=== PATIENT | male | born 1990 | race Caucasian/White ===

== ENCOUNTER 2024-11-18 03:05 | Emergency (ER) | payer SELFPAY ==
[2024-11-18] VITALS (7 sets, daily range): BP systolic 96–112; BP diastolic 57–67; PULSE 57–105; BMI 23.2
[2024-11-18 03:35] LABS: % Basophils 0.7 % (0-2); % Eosinophils 0.4 % (0-6); % Immature Granulocytes 0.2 % (0-0.5); % Lymphocytes 16.5 % (20.5-51.1); % Monocytes 5.6 % (1.7-9.3); % Neutrophils 76.6 % (42.2-75.2); Absolute Basophils 0.1 10^3/uL (0-0.2); Absolute Lymphocytes 1.5 10^3/uL (1.2-3.4); Absolute Monocytes 0.5 10^3/uL (0.1-0.6); Hematocrit 40.6 % (39.0-52.0); Hemoglobin 14.3 g/dL (13.0-18.0); Mean Corp Hgb Conc. 35.2 g/dL (33.0-37.0); Mean Corpuscular Volume 87.9 fL (80.0-94.0); Mean Platelet Volume 9.3 fL (7.4-10.4); Nucleated Red Blood Cells % 0 % (-); Platelet Count 235 10^3/uL (130-400); Red Blood Cell Count 4.62 10^6/uL (4.70-6.10); Red Cell Dist. Width 13.4 % (11.5-14.5); White Blood Cell Count 9.1 10^3/uL (4.8-10.8)
[2024-11-18 04:00] LABS: ALT (SGPT) 26 U/L (0-50); AST (SGOT) 28 U/L (17-59); Albumin 4.8 g/dl (3.5-5.0); Alkaline Phosphatase 42 U/L (38-126); Blood Urea Nitrogen 23 mg/dl (9-20); Calcium 8.4 mg/dl (8.4-10.2); Carbon Dioxide 23 mmol/L (22-30); Chloride 108 mmol/L (98-107); Estimated Creatinine Clearance 111 ml/min; Glucose 113 mg/dl (70-99); Potassium 4.1 mmol/L (3.5-5.1); Sodium 141 mmol/L (135-145); Total Bilirubin 0.9 mg/dl (0.2-1.3); Total Protein 7.5 g/dl (6.3-8.2); eGFR > 60.00
[2024-11-18 04:11] LABS: Troponin I 0.026 ng/ml
[2024-11-18] MEDS: ZOFRAN 4 MG IV (05:15)
[2024-11-18] MEDS: NSS 1000 IV (05:16)
--- NOTE | 2024-11-18 05:33 | PTCARENOTE ---
Unable to complete orthostatic vitals. Upon sitting upright patient became dizzy, nauseous, diaphoretic, and pale. Unable to attempt standing even after 2 minutes of sitting upright. Upon notifying Dr. Alonzo, patient began vomiting 500ml clear
emesis. warehouse operations associate was still at the bedside to assist the patient. Orders from Dr. Alonzo to follow
[2024-11-18] MEDS: ANTIVERT 25 MG PO (05:57)
[2024-11-18 06:12] LABS: Troponin I 0.013 ng/ml
--- NOTE | 2024-11-18 06:49 | ED.GENMED ---
History of Present Illness
General
Chief Complaint: Fainting Sensation
Source: patient
Exam Limitations: none
Time Seen by Provider: 11/18/24 04:48
Nursing documentation reviewed up to this point in time: agreed with
History of Present Illness
History of Present Illness:
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 Symptoms persisted and he began to feel lightheaded, became diaphoretic, pale.
He was able to drive to the police station and upon EMS arrival patient was found to be pale, diaphoretic and hypotensive. Peripheral IV established and he was given 300 mL of normal saline bolus.
Currently feeling improved but admits to intermittent mild brief nausea, mild brief abdominal discomfort. He has not passed a bowel movement. He denies chest pain, no coughing or shortness of breath.
He did suffer a GI illness with moderate diarrhea for approximately 1-1/2 days 2 weeks ago.
He takes no medicines on a daily basis. No significant past medical history. No recent travel nor recent antibiotic use.
Past History
Past History
ED Past Medical History: None
ED Past Surgical History: None
Social History
Tobacco: Non-smoker
Alcohol: Occasional
Drug: None
Living: with family
Employment: Employed
Family History
Family History: Other (Noncontributory)
Phy Exam
Physical Exam
Physical Exam:
GENERAL: 34-year-old gentleman appears his stated age, awake and alert, pleasant, appears in no acute distress.
EYE: . anicteric
NECK: Supple, nontender, no meningismus, no significant adenopathy.
ENT: oral mucosa is moist. No rhinorrhea.
CARDIAC: Regular rate and rhythm. no murmur.
LUNGS: Clear breath sounds bilaterally, no acute respiratory distress, no wheezes/rales/rhonchi
ABDOMEN: Soft, nondistended, no appreciable tenderness to palpation, no r/g, no cvat. normoactive BS.
NEUROLOGICAL: Alert and oriented x3, no focal neuro deficits.
SKIN: Warm and dry, normal color, skin intact. No rash.
MUSCULOSKELETAL: No C/C/E. peripheral pulses are full and equal b/l. No palpable tenderness.
PSYCH: Normal and appropriate interaction.
Course
Orders/Labs/Results
Orders:
Orders
11/18/24 03:15
EKG [Electrocardiogram (*1)] Urgent
Reason for Study: Chest Pain
EKG- Treatment ONCE
11/18/24 03:19
Complete Blood Count/With Diff Urgent
Comprehensive Metabolic Panel Urgent
Troponin I Urgent
11/18/24 04:27
Orthostatic VS- Treatment ONCE
11/18/24 04:59
0.9% Sodium Chloride 1000 ml [Nss] 1,000 ml IV BOLUS
11/18/24 05:10
Troponin I Urgent
Meclizine [Antivert] 25 mg PO NOW STA
Ondansetron Injectable [Zofran] 4 mg IV NOW STA
Abnormal Lab Results
11/18/24
03:19
RBC 4.62 L 10^6/uL
(4.70-6.10)
Absolute Neuts (auto) 7.0 H 10^3/uL
(1.4-6.5)
Neutrophils % 76.6 H %
(42.2-75.2)
Lymphocytes % 16.5 L %
(20.5-51.1)
Chloride 108 H mmol/L
(98-107)
BUN 23 H mg/dl
(9-20)
Glucose 113 H mg/dl
(70-99)
11/18/24 03:19
11/18/24 03:19
Vital Signs
Initial and Last Documented VS:
Initial Vital Signs
Pulse Resp BP Pulse Ox
62 15 112/57 100
11/18/24 03:10 11/18/24 03:10 11/18/24 03:10 11/18/24 03:10
Last Documented Vital Signs
Temp Pulse Resp BP Pulse Ox
97.9 F 67 17 102/63 99
11/18/24 03:20 11/18/24 05:30 11/18/24 05:30 11/18/24 05:00 11/18/24 05:30
MDM/Problems Addressed
Differential Diagnosis Includes:
Concern for vasovagal episode, gastroenteritis, dehydration, other consideration is cardiac arrhythmia.
EKG is unremarkable, within normal limits.
Will check orthostatic vital signs.
Labs thus far are unremarkable. Troponin within normal limits. Will plan to repeat troponin.
As abdomen is soft without appreciable tenderness, no indication for imaging at this point.
*Pulse Oximetry
Patient hypoxic: no
*EKG
Interpreted by ED Provider?: Yes
Interpretation: normal
Comparison EKG: no comparison EKG present
Rate: normal
Rhythm: sinus
[place]: normal axis
Interval: normal interval
QRS Pattern: normal QRS
Ischemia: no ischemia
*[employer] Supervisor Interpretation
Rate: normal
Interpretation: normal
Rhythm: sinus
*Critical Care Note
Total Time (30-74mins, 75-104mins- exclusive of procedures): Not Applicable
Update Note
Update Note:
05:10
Patient noted to to be significantly orthostatic and upon sitting upright nausea worsened and he proceeded to vomit.
Will initiate IV fluid bolus, give an IV dose of Zofran.
Less likely that symptoms are vertiginous in nature but will give a dose of meclizine as well.
07:00
Patient feeling markedly improved after IV fluids and IV Zofran.
Repeat orthostatic vital signs are negative.
No further nausea. No further abdominal cramping.
Patient is eager to be discharged to home.
Recommend he drink plenty of clear liquids over the next several days. Maintain a bland diet.
Prompt follow-up with PCP for recheck.
This may be a prodrome to GI illness. Patient has Zofran at home for as needed nausea. Will prescribed Lomotil for as needed diarrhea
ED Attending Note
-
Portions of this chart may have been created with voice recognition software.� Occasional wrong word or��sound alike� substitutions may have occurred due to the inherent limitations of voice recognition software.
Discharge Plan
Departure
Patient Disposition: Home (Routine Discharge)
Date of Disposition: 11/18/24
Time of Disposition: 06:58
Patient with high blood pressure during this ER visit?: No
Condition: Good
Discharge Problem:
Vasovagal near-syncope
Instructions: Near Fainting (DC)
Prescriptions:
New
diphenoxylate-atropine [Lomotil] 2.5-0.025 mg tablet
1 tab PO QID PRN (Reason: diarrhea) Qty: 10 0RF
Referrals:
Rahul Grey PA-C [Family Provider, Family Practice] - Call in 1-3 days for appt
Interventions
Interventions:
*Risk Screen - Suicide Last Done: 11/18/24 03:15
*General Assessment Last Done: 11/18/24 03:15
*Neglect/Abuse Screening Last Done: 11/18/24 03:15
*ED- Fall Risk Assessment Last Done: 11/18/24 04:00
ED- Cardiac Assessment Last Done: 11/18/24 04:00
ED- Neurological Assessment Last Done: 11/18/24 04:00
Discharge Date and Time
Print Language: MALTESE
== END 2024-11-18 07:20 | disposition home or self-care (01) ==
LOC: EMR 03:05
PROVIDERS: EMERGENCY PHYSICIAN Emergency Medicine; FAMILY PHYSICIAN Physician Assistant Medical
DX: R55 Syncope and collapse (principal); R10.9 Unspecified abdominal pain; R11.0 Nausea
CPT/HCPCS: 99284; 96374; 96361; 80053; 84484; 85025; 93005